=== PATIENT | male | born 1970 | race Caucasian/White ===

== ENCOUNTER 2022-03-26 17:51 | Emergency (ER) | payer OTHER, BC ==
[2022-03-26] MEDS ORDERED: Lidocaine 1% 20 ML MDV ONE (18:03)
[2022-03-26] MEDS ORDERED: Bacitracin 1 PK ONE (18:06)
== END 2022-03-26 18:33 | disposition home or self-care (01) ==
LOC: NAV ERS 17:51
DX: S51.812A Laceration without foreign body of left forearm, initial encounter (principal); F17.290 Nicotine dependence, other tobacco product, uncomplicated; W45.8XXA Other foreign body or object entering through skin, initial encounter
CPT/HCPCS: 12002